=== PATIENT | female | born 1935 | race Caucasian/White ===

== ENCOUNTER 2017-04-13 11:15 | Inpatient (IN) | payer OTHER, MEDICAID ==
[~2017-04-13] VITALS: Ht 172.7 cm; Wt 63.5 kg
[2017-04-13 11:15] VITALS: BP_SYST 100
[2017-04-13] MEDS ORDERED: SENNS PO (11:58)
[2017-04-13] MEDS ORDERED: FLUT1DIS3 INH (11:58)
[2017-04-13] MEDS ORDERED: CARV3.1246 PO (11:58)
[2017-04-13] MEDS ORDERED: IBUP-1480 PO (11:58)
[2017-04-13] MEDS ORDERED: ALLO100T PO (11:58)
[2017-04-13] MEDS ORDERED: PHEDM120 PO (11:58)
[2017-04-13] MEDS ORDERED: ALBU2.5V7 INH (11:58)
[2017-04-13] MEDS ORDERED: VENL37.510 PO (11:58)
[2017-04-13] MEDS ORDERED: ROSU10TA PO (11:58)
[2017-04-13] MEDS ORDERED: OSCD500 PO (11:58)
[2017-04-13] MEDS ORDERED: ESOM40CA PO (11:58)
[2017-04-13] MEDS ORDERED: IPRA0.2S6 INH (11:58)
[2017-04-13] MEDS ORDERED: DABI75CA4 PO (11:58)
[2017-04-13] MEDS ORDERED: ACET325T53 PO (11:58)
[2017-04-13] MEDS ORDERED: ALEN10TA6 PO (11:58)
[2017-04-13] MEDS ORDERED: ONDA4TAB5 IV (11:58)
[2017-04-13 12:00] LABS: BASOPHILS % (AUTO) 0.6 % (0.0-2.0); EOSINOPHILS # (AUTO) 0.1 K/uL (0.0-0.4); HEMATOCRIT 38.8 % (36-48); HEMOGLOBIN 12.8 g/dL (12.0-16.0); LYMPHOCYTES # (AUTO) 0.7 K/uL (1.0-5.5); LYMPHOCYTES % (AUTO) 13.2 % (20.5-51.5); MEAN CORPUSCULAR HEMOGLOBIN 32 pg (27-31); MEAN CORPUSCULAR HGB CONC 33 % (32-36); MEAN CORPUSCULAR VOLUME 97 fL (79.0-98.0); MONOCYTES # (AUTO) 0.4 K/uL (0.0-1.0); MONOCYTES % (AUTO) 7.4 % (1.7-9.3); NEUTROPHILS # (AUTO) 4.3 K/uL (1.8-7.7); NEUTROPHILS % (AUTO) 76.8 % (40.0-70.0); PLATELET COUNT (AUTO) 160 K/uL (130-430); RED BLOOD CELL COUNT(AUTO) 4.01 MIL/uL (4.2-6.2); RED CELL DISTRIBUTION WIDTH 14.4 % (9.0-15.0); WHITE BLOOD COUNT (AUTO) 5.5 K/uL (4.8-10.8)
[2017-04-13 12:11] LABS: ANION GAP 8 (5-15); CALCIUM 8.8 mg/dL (8.4-11.0); CHLORIDE 104 mmol/L (98-107); CREATININE 0.95 mg/dL (0.55-1.30); GLUCOSE 92 mg/dL (70-99); POTASSIUM 3.7 mmol/L (3.5-5.1); SODIUM SERUM 138 mmol/L (136-145); UREA NITROGEN, BLOOD 13 mg/dL (8-21)
[2017-04-13 12:16] LABS: ALANINE AMINOTRANSFERASE 193 U/L (12-78); ALBUMIN 2.8 g/dL (3.4-4.8); AMYLASE 22 U/L (0-100); ASPARTATE AMINOTRANSFERASE 76 U/L (10-37); LIPASE 123 U/L (73-393); PROTHROMBIN TIME 11.3 SECS (9.5-12.5); TOTAL BILIRUBIN 2.6 mg/dL (0.0-1.0)
[2017-04-13] MEDS ORDERED: MORPHINE 2 MG/ML INJ. SYRINGE IVP PRN (14:00)
[2017-04-13] MEDS ORDERED: ONDANSETRON HCL 4 MG/2 ML VIAL IVP PRN (14:00)
[2017-04-13 14:43] VITALS: BP_SYST 159
[2017-04-13 16:05] VITALS: BP_SYST 159
[2017-04-13] MEDS ORDERED: ACETAMINOPHEN 325 MG TABLET PO PRN (16:30)
[2017-04-13] MEDS ORDERED: ALBUTEROL SULFATE 0.083% 2.5 MG/3 ML VIAL.NEB INH PRN (16:30)
[2017-04-13] MEDS ORDERED: FLUTICASONE 250 mCg/SALMETEROL 50 mCg DISKUS W.DEV INH SCH (16:30)
[2017-04-13] MEDS ORDERED: ONDANSETRON 4 MG ODT TAB PO PRN (16:30)
[2017-04-13 17:07] VITALS: BP_SYST 159
[2017-04-13] MEDS: ALLOPURINOL 100 MG TABLET (ZYLOPRIM) PO SCH (18:06)
[2017-04-13] MEDS: Effexor 37.5 MG TAB PO SCH (18:07)
[2017-04-13] MEDS: D5/0.45 NS 1,000 ML IV SCH (18:07)
[2017-04-13 20:00] VITALS: BP_SYST 111
[2017-04-13] MEDS: CARVEDILOL 3.125 MG TABLET (COREG) PO SCH (22:14)
[2017-04-14 05:46] VITALS: BP_SYST 100
[2017-04-14] MEDS ORDERED: ALENDRONATE 70 MG TAB PO SCH (06:00)
[2017-04-14 07:33] LABS: ALANINE AMINOTRANSFERASE 139 U/L (12-78); ALBUMIN 2.5 g/dL (3.4-4.8); ANION GAP 7 (5-15); ASPARTATE AMINOTRANSFERASE 44 U/L (10-37); CALCIUM 8.4 mg/dL (8.4-11.0); CHLORIDE 105 mmol/L (98-107); CREATININE 0.84 mg/dL (0.55-1.30); GLUCOSE 109 mg/dL (70-99); POTASSIUM 3.6 mmol/L (3.5-5.1); SODIUM SERUM 139 mmol/L (136-145); TOTAL BILIRUBIN 1.6 mg/dL (0.0-1.0); UREA NITROGEN, BLOOD 12 mg/dL (8-21)
[2017-04-14 07:46] VITALS: BP_SYST 101
[2017-04-14] MEDS: ALLOPURINOL 100 MG TABLET (ZYLOPRIM) PO SCH (08:26)
[2017-04-14] MEDS: FLUTICASONE/VILANTEROL 1 EACH BLST.W.DEV INH SCH (08:26)
[2017-04-14] MEDS: Effexor 37.5 MG TAB PO SCH (08:26)
[2017-04-14] MEDS ORDERED: ALENDRONATE SODIUM 70 MG TABLET (FOSAMAX) PO SCH (09:00)
[2017-04-14] MEDS ORDERED: ALENDRONATE SODIUM 10 MG TABLET (FOSAMAX) PO SCH (09:00)
[2017-04-14] MEDS: D5/0.45 NS 1,000 ML IV SCH (10:54)
[2017-04-14 12:46] VITALS: BP_SYST 122
[2017-04-14 16:10] VITALS: BP_SYST 138
[2017-04-14] MEDS: MUPIROCIN 2% TOPICAL OINTMENT 22 GM TP SCH (20:47)
[2017-04-14] MEDS: CARVEDILOL 3.125 MG TABLET (COREG) PO SCH (20:47)
[2017-04-15] MEDS: D5/0.45 NS 1,000 ML IV SCH ×2 (03:57→20:32)
[2017-04-15 07:10] LABS: ALBUMIN 2.8 g/dL (3.4-4.8); BILIRUBIN,DIRECT 0.9 mg/dL (0.0-0.3); TOTAL BILIRUBIN 1.4 mg/dL (0.0-1.0)
[2017-04-15 09:23] VITALS: BP_SYST 121
[2017-04-15] MEDS: FLUTICASONE/VILANTEROL 1 EACH BLST.W.DEV INH SCH (09:28)
[2017-04-15] MEDS: MUPIROCIN 2% TOPICAL OINTMENT 22 GM TP SCH ×2 (09:29→20:33)
[2017-04-15] MEDS: Effexor 37.5 MG TAB PO SCH (09:29)
[2017-04-15] MEDS: ALLOPURINOL 100 MG TABLET (ZYLOPRIM) PO SCH (09:29)
[2017-04-15 11:57] VITALS: BP_SYST 119
[2017-04-15 16:17] VITALS: BP_SYST 122
[2017-04-15 19:49] VITALS: BP_SYST 130
[2017-04-15] MEDS: CARVEDILOL 3.125 MG TABLET (COREG) PO SCH (20:33)
[2017-04-16] VITALS (7 sets, daily range): BP systolic 106–134
[2017-04-16] MEDS: ALLOPURINOL 100 MG TABLET (ZYLOPRIM) PO SCH (08:53)
[2017-04-16] MEDS: Effexor 37.5 MG TAB PO SCH (08:53)
[2017-04-16] MEDS: D5/0.45 NS 1,000 ML IV SCH (08:54)
[2017-04-16] MEDS: FLUTICASONE/VILANTEROL 1 EACH BLST.W.DEV INH SCH (08:54)
[2017-04-16] MEDS: MUPIROCIN 2% TOPICAL OINTMENT 22 GM TP SCH (08:54)
== END 2017-04-16 17:25 | DRG 392 ==
LOC: SED 11:15 → SMU 13:58
PROVIDERS: ADMIT Family Medicine; ATTEND Family Medicine
DX: R10.9 Unspecified abdominal pain (principal); I48.2 Chronic atrial fibrillation; I50.9 Heart failure, unspecified; E44.1 Mild protein-calorie malnutrition; J44.9 Chronic obstructive pulmonary disease, unspecified; M16.10 Unilateral primary osteoarthritis, unspecified hip; K21.9 Gastro-esophageal reflux disease without esophagitis; F32.9 Major depressive disorder, single episode, unspecified; M81.0 Age-related osteoporosis without current pathological fracture; Z79.899 Other long term (current) drug therapy; Z22.322 Carrier or suspected carrier of Methicillin resistant Staphylococcus aureus
CPT/HCPCS: 36415; 76705; 78226; 80053; 80076; 82150-TC; 83690-TC; 85025; 85610-TC; 85730-TC; 87081; 94760; 99285; A9537